=== PATIENT | female | born 2000 | race African-American/Black ===

== ENCOUNTER 2019-01-17 06:59 | Emergency (ER) | payer SELFPAY ==
[~2019-01-17] VITALS: Ht 170.2 cm; Wt 90.7 kg
[2019-01-17] MEDS ORDERED: LIDOCAINE 5% OINT 35.44 GM TUBE TP STA (07:16)
[2019-01-17] MEDS ORDERED: LIDOCAINE /MPF 1% VIAL 5 ML VIAL ONE (07:20)
--- NOTE | 2019-01-17 07:21 | NUR ---
PT IN ER BED 15. AAO X4. SEEN BY MD AWAITING ORDERS.
[2019-01-17] MEDS ORDERED: LIDOCAINE 1% INJ 50 ML MDV IJ ONE ×3 (07:24→07:43)
[2019-01-17] MEDS ORDERED: LIDOCAINE/PRILOCAINE 1 EA KIT TP ONE (07:30)
--- NOTE | 2019-01-17 07:57 | NUR ---
Patient discharged to home in stable condition. Written and verbal after care instructions given. Patient verbalizes understanding of instruction.
[2019-01-17 08:01] VITALS: BP 135/72
== END 2019-01-17 07:58 | disposition home or self-care (01) ==
LOC: ER 07:01
DX: L05.01 Pilonidal cyst with abscess (principal)
CPT/HCPCS: 99283; J3490 ×2